=== PATIENT | male | born 1975 | race Two or more races ===

== ENCOUNTER 2018-01-23 18:28 | Emergency (ER) | payer BC, MEDICAID ==
[~2018-01-23] VITALS: Ht 175.3 cm; Wt 122.5 kg
[2018-01-23 18:46] VITALS: BP 160/93
== END 2018-01-23 19:07 | disposition left against medical advice (07) ==
LOC: ER 18:28
DX: R42 Dizziness and giddiness (principal); Z53.21 Procedure and treatment not carried out due to patient leaving prior to being seen by health care provider
CPT/HCPCS: 93005

== ENCOUNTER → 2018-02-22 | Emergency (ER) | payer MEDICAID, OTHER | END | disposition left against medical advice (07) | LOC: ER 11:10 | DX: R51 Headache (principal); Z53.21 Procedure and treatment not carried out due to patient leaving prior to being seen by health care provider ==

== ENCOUNTER 2018-07-22 00:40 | Inpatient (IN) | payer BC, MEDICAID ==
[~2018-07-22] VITALS: Ht 175.3 cm; Wt 119.4 kg
[2018-07-22 01:18] LABS: Basophils # (auto) 0.1 uL; Basophils % (auto) 0.8 % (0.0-2.0); Eosinophils # (auto) 0.2 uL; Eosinophils % (auto) 1.9 % (0.0-7.0); Hematocrit 49.6 % (41.0-53.0); Hemoglobin 16.7 g/dL (13.5-17.5); Lymphocytes # (auto) 2.7 uL; Lymphocytes % (auto) 27.1 % (10.0-50.0); Mean Corpuscular Hemoglobin 31.1 pg (28.0-32.0); Mean Corpuscular Hgb Conc. 33.7 g/dL (32.0-36.0); Mean Corpuscular Volume 92.4 fL (80.0-100.0); Monocytes # (auto) 0.7 uL; Monocytes % (auto) 7.3 % (0.0-12.0); Neutrophils # (auto) 6.3 uL; Neutrophils % (auto) 62.9 % (37.0-80.0); Nucleated Red Blood Cells % 0.1 %; Platelet Count (auto) 197 10^3/uL (140-450); Red Blood Cells 5.37 10^6/uL (4.5-5.90); Red Cell Distribution Width 12.8 % (11.8-14.3)
[2018-07-22 01:33] LABS: INR 1.01 (0.9-1.15); Partial Thromboplastin Time 31.7 sec (23.78-33.04); Prothrombin Time 10.8 sec (9.27-12.13)
[2018-07-22 01:36] LABS: Alanine Aminotransferase 25 U/L (16-61); Albumin 3.6 g/dL (3.4-5.0); Anion Gap 8 (5-15); Aspartate Aminotransferase 19 U/L (15-37); BUN/Creatinine Ratio 16.7; Blood Urea Nitrogen 15 mg/dL (7-18); Calcium 7.9 mg/dL (8.5-10.1); Carbon Dioxide 25 mmol/L (21-32); Chloride 107 mmol/L (98-107); GFR African American 119 mL/min; GFR Non-African American 98 mL/min; Glucose 113 mg/dL (74-106); Magnesium 2.4 mg/dL (1.6-2.6); Potassium 3.5 mmol/L (3.5-5.1); Sodium 140 mmol/L (136-145)
[2018-07-22 01:41] LABS: Alkaline Phosphatase 112 U/L (45-117); Bilirubin, Total 0.5 mg/dL (0.2-1.0); Total Protein 7.5 g/dL (6.4-8.2)
[2018-07-22 02:48] LABS: Urine Bacteria FEW /hpf (None Seen); Urine Blood Negative /uL (Negative); Urine Specific Gravity 1.004 (1.001-1.035); Urine WBC <1 /hpf (0 - 3)
[2018-07-22] MEDS ORDERED: TEMAZEPAM 15 MG CAP PO PRN (06:30)
[2018-07-22] MEDS ORDERED: ONDANSETRON HCL 4 MG/2 ML VIAL IV PRN (06:30)
[2018-07-22] MEDS ORDERED: NITROGLYCERIN 0.4 MG SL TAB SL PRN (06:30)
[2018-07-22] MEDS ORDERED: MORPHINE SULFATE 4 MG/ML SYR/VIAL IV PRN (06:30)
[2018-07-22 09:14] VITALS: BP 132/73
[2018-07-22] MEDS ORDERED: ATENOLOL 50 MG TAB PO SCH (10:00)
[2018-07-22] MEDS: FAMOTIDINE 20 MG TAB PO SCH ×2 (10:04→22:22)
[2018-07-22] MEDS: LOSARTAN POTASSIUM 25 MG TAB PO SCH ×2 (10:05→22:23)
[2018-07-22] MEDS ORDERED: MORPHINE SULF INJ 2 MG/ML SYRINGE 1ML IV PRN (12:15)
[2018-07-22 13:00] VITALS: BP 146/77
[2018-07-22 17:00] VITALS: BP 139/69
[2018-07-22 21:41] VITALS: BP 137/79
[2018-07-23 05:00] VITALS: BP 130/78
[2018-07-23 09:00] VITALS: BP 143/87
[2018-07-23] MEDS: FAMOTIDINE 20 MG TAB PO SCH (09:43)
[2018-07-23] MEDS: LOSARTAN POTASSIUM 25 MG TAB PO SCH (09:43)
[2018-07-23 13:00] VITALS: BP 129/79
[2018-07-23 16:57] VITALS: BP 129/79
== END 2018-07-23 17:30 | disposition home or self-care (01) | DRG 310 ==
LOC: ER 00:40 → TELE 00:41 → TELE-WESTW 09:23
PROVIDERS: ADMIT Nurse Practitioner; ATTEND Nurse Practitioner
DX: R00.2 Palpitations (principal); E66.01 Morbid (severe) obesity due to excess calories; F41.9 Anxiety disorder, unspecified; I10 Essential (primary) hypertension; I49.9 Cardiac arrhythmia, unspecified; Z82.49 Family history of ischemic heart disease and other diseases of the circulatory system; Z68.38 Body mass index [BMI] 38.0-38.9, adult; Z71.89 Other specified counseling
CPT/HCPCS: 36415; 71045; 80053; 81001; 83735; 83880; 84443; 84484; 85025; 85610; 85730; 93005; 93306

== ENCOUNTER 2018-08-27 02:35 | Emergency (ER) | payer BC, MEDICAID ==
[~2018-08-27] VITALS: Ht 175.3 cm; Wt 113.4 kg
[2018-08-27 04:29] LABS: Basophils # (auto) 0 uL; Basophils % (auto) 0.4 % (0.0-2.0); Red Blood Cells 5.66 10^6/uL (4.5-5.90)
[2018-08-27 04:30] LABS: Eosinophils # (auto) 0.2 uL; Hematocrit 52.6 % (41.0-53.0); Hemoglobin 17.9 g/dL (13.5-17.5); Lymphocytes % (auto) 23.2 % (10.0-50.0); Mean Corpuscular Hemoglobin 31.6 pg (28.0-32.0); Mean Corpuscular Volume 92.9 fL (80.0-100.0); Monocytes # (auto) 0.7 uL; Monocytes % (auto) 8.5 % (0.0-12.0); Neutrophils # (auto) 5.6 uL; Neutrophils % (auto) 65.9 % (37.0-80.0); Nucleated Red Blood Cells % 0.1 %; Platelet Count (auto) 208 10^3/uL (140-450); Red Cell Distribution Width 13.1 % (11.8-14.3); White Blood Cell 8.5 10^3/uL (4.4-10.8)
[2018-08-27 04:31] LABS: Potassium 3.8 mmol/L (3.5-5.1)
[2018-08-27 04:37] LABS: BUN/Creatinine Ratio 9.1; Bilirubin, Total 0.5 mg/dL (0.2-1.0); Calcium 8.8 mg/dL (8.5-10.1); Total Protein 8.2 g/dL (6.4-8.2)
[2018-08-27] MEDS ORDERED: SODIUM CHLORIDE 0.9% 1,000 ML IV ONE (08:10)
[2018-08-27] MEDS ORDERED: METOCLOPRAMIDE HCL 5MG/ml INJ 2ml VIAL IV ONE (08:15)
[2018-08-27] MEDS ORDERED: KETOROLAC TROMETH 30 MG/ML 1ML VIAL IV ONE (08:15)
[2018-08-27 09:20] LABS: Urine Bacteria NONE SEEN /hpf (None Seen); Urine Blood 2+ /uL (Negative); Urine Mucus FEW (None Seen); Urine Specific Gravity 1.013 (1.001-1.035); Urine WBC 5 /hpf (0 - 3)
[2018-08-27 10:34] VITALS: BP 121/74
== END 2018-08-27 11:09 | disposition home or self-care (01) ==
LOC: ER 02:35
DX: G43.909 Migraine, unspecified, not intractable, without status migrainosus (principal); F41.9 Anxiety disorder, unspecified
CPT/HCPCS: 36415; 70450; 71046; 80053; 81001; 83735; 84443; 85025; 96361; 96374; 96375; 99285; J1885; J2765

== ENCOUNTER 2021-08-15 00:50 | Emergency (ER) | payer BC, OTHER ==
[~2021-08-15] VITALS: Ht 175.3 cm; Wt 130.6 kg
[2021-08-15 00:50] VITALS: BP 122/86
== END 2021-08-15 01:29 | disposition left against medical advice (07) ==
LOC: ER 00:52
DX: R10.30 Lower abdominal pain, unspecified (principal); Z53.21 Procedure and treatment not carried out due to patient leaving prior to being seen by health care provider

== ENCOUNTER 2021-09-26 12:58 | Emergency (ER) | payer OTHER ==
[~2021-09-26] VITALS: Ht 175.3 cm; Wt 130.6 kg
[2021-09-26 13:08] VITALS: BP 139/79
[2021-09-26] MEDS ORDERED: ASPirin 81 mg TAB PO ONE (13:30)
== END 2021-09-26 16:09 | disposition left against medical advice (07) ==
LOC: ER 12:58
DX: R07.89 Other chest pain (principal); R06.02 Shortness of breath; R20.0 Anesthesia of skin; Z53.21 Procedure and treatment not carried out due to patient leaving prior to being seen by health care provider